=== PATIENT | female | born 1955 | race Caucasian/White ===

== ENCOUNTER 2024-01-09 19:33 | Emergency (ER) | payer MEDICAID ==
[~2024-01-09] VITALS: Ht 157.5 cm; Wt 65.0 kg
[2024-01-09 20:05] VITALS: O2SAT 100
[2024-01-09 20:27] VITALS: TEMP 98.4
[2024-01-09] MEDS: ACETAMINOPHEN 325MG TABLET PO ONE (20:27)
[2024-01-09] MEDS ORDERED: ACET-2708 MT (21:17)
[2024-01-09 22:26] VITALS: BP 173/73; PULSE 76; RESP 16
== END 2024-01-09 22:28 | disposition home or self-care (01) ==
LOC: ER 19:33
DX: S52.501A Unspecified fracture of the lower end of right radius, initial encounter for closed fracture (principal); S52.611A Displaced fracture of right ulna styloid process, initial encounter for closed fracture; W18.39XA Other fall on same level, initial encounter; Y93.89 Activity, other specified; Y92.89 Other specified places as the place of occurrence of the external cause; Y99.8 Other external cause status
CPT/HCPCS: 73110; 99283; A4565